=== PATIENT | male | born 1955 | race Caucasian/White ===

== ENCOUNTER 2017-01-23 05:42 | Day surgery (SDC) | payer BC ==
[2017-01-23] MEDS ORDERED: Midazolam 1 MG/ML 2 ML SDV IV ONE ×7 (05:43→07:07)
[2017-01-23] MEDS ORDERED: fentaNYL 100 MCG/2 ML SDV IV ONE ×4 (05:43→07:10)
[2017-01-23] MEDS ORDERED: Dextrose 5%-0.45% NaCl 1,000 ML IV SCH (06:00)
[2017-01-23] MEDS ORDERED: Midazolam 1 MG/ML 2 ML SDV ONE (06:18)
[2017-01-23] MEDS ORDERED: fentaNYL 100 MCG/2 ML SDV ONE (06:18)
--- NOTE | 2017-01-23 08:21 | OR ---
DATE: 01/23/2017 PROCEDURE: Total colonoscopy. INSTRUMENT USED: CF-H180AL Olympus video colonoscope. PREMEDICATIONS: Fentanyl 125 mcg intravenous, Versed 4 mg intravenous. Nasal O2 cannula. The procedure was done under pulse oximetry, BP recording, and dietary aide. INDICATION: The patient with Hemoccult positive stools. Colonoscopic examination is done for detection of any polypoid lesions and removal, endoscopic hemostasis therapy if needed. DESCRIPTION OF PROCEDURE: Initial rectal exam was unremarkable. Rigid anoscopy was normal. The colonoscope was passed with ease. Few scattered diverticula were noted. The scope was passed with ease up to the ileocecal area, photographs were taken of the normal appearing cecum identified by landmarks of appendiceal orifice and double-bulged ileocecal folds. No bleeding was noted from any of the visualized areas at the commencement of the examination. No stricture. No vascular ectasia. No large isolated ulcerations seen. No evidence of diffuse inflammatory bowel disease in the form of friability, contact bleeding, or ulcerations. No polyp or tumor mass identified. Probing the proximal sides of folds and flexures, using adequate distention and clearing of the stool material, withdrawal of the scope was made. Cecum to rectum time over 6 minutes. No bleeding was noted from any of the visualized areas at the completion of examination. IMPRESSION: Diverticulosis. The patient tolerated the procedure well. [facility] /[id number]
[2017-01-23 09:37] VITALS: BP 167/75
== END 2017-01-23 09:45 | disposition home or self-care (01) ==
LOC: DL.ENDO 05:42
PROVIDERS: ATTEND Internal Medicine Gastroenterology
DX: K57.30 Diverticulosis of large intestine without perforation or abscess without bleeding (principal); E11.9 Type 2 diabetes mellitus without complications; M19.90 Unspecified osteoarthritis, unspecified site; E78.5 Hyperlipidemia, unspecified; Z80.0 Family history of malignant neoplasm of digestive organs; Z79.82 Long term (current) use of aspirin; Z79.899 Other long term (current) drug therapy; Z98.890 Other specified postprocedural states
CPT/HCPCS: 45378; J2250; J3010; J7042

== ENCOUNTER 2017-06-13 16:41 | Inpatient (IN) | payer BC ==
[2017-06-13] MEDS ORDERED: Zolpidem 5 MG Tab PO PRN (17:33)
[2017-06-13] MEDS ORDERED: Acetaminophen 325 MG Tab PO PRN (17:33)
[2017-06-13] MEDS ORDERED: Sodium Chloride 0.9% 10 ML Syringe FLUSH PRN (17:33)
[2017-06-13] MEDS ORDERED: Ondansetron 4 MG/2 ML SDV IVPUSH PRN (17:33)
--- NOTE | 2017-06-13 17:33 | PCM.HP ---
H&P History of Present Illness - General Date of Service: 06/13/17 Admit Problem/Dx: Hyperglycemia Source of Information: Patient - History of Present Illness Initial Comments - Free Text/Narative: The patient is a 62-year-old gentleman with a history of diet-controlled diabetes, dyslipidemia. The patient was noted to have peritonsillar infection and was given prednisone about a month ago. He only took it for a few days. Subsequently noticed that he is urinating a lot, losing weight, always thirsty. On the day of admission the patient was noted to have blood sugar above 600. - Related Data Allergies/Adverse Reactions: Allergies Allergy/AdvReac Type Severity Reaction Status Date / Time No Known Allergies Allergy Verified 06/13/17 16:56 Home Medications: Home Meds Multivitamin with Minerals [Multiple Vitamin] 1 tab PO DAILY 02/23/15 [History] atorvaSTATin [Lipitor] 1 tab PO DAILY 01/20/17 [History] Non-Formulary Medication [NF Drug] 0 each PRN 06/13/17 [History] Past Medical History HEENT History: Reports: Hard of Hearing Other HEENT History: WEARS CORRECTIVE LENSES Cardiovascular History: Reports: High Cholesterol Respiratory History: Reports: None Gastrointestinal History: Reports: Chronic Constipation, GERD Genitourinary History: Reports: None Musculoskeletal History: Reports: Arthritis, Osteoarthritis Neurological History: Reports: None Psychiatric History: Reports: None Endocrine/Metabolic History: Reports: None, Diabetes, Type II Hematologic History: Reports: None Immunologic History: Reports: None Oncologic (Cancer) History: Reports: None Dermatologic History: Reports: None - Infectious Disease History Infectious Disease History: Reports: None - Past Surgical History Head Surgeries/Procedures: Reports: None HEENT Surgical History: Reports: None Cardiovascular Surgical History: Reports: None Respiratory Surgical History: Reports: None GI Surgical History: Reports: Colonoscopy Male Surgical History: Reports: None Endocrine Surgical History: Reports: None Neurological Surgical History: Reports: None Musculoskeletal Surgical History: Reports: Other (See Below) Other Musculoskeletal Surgeries/Procedures:: LEFT GREAT DIGIT FOOT SURGERY Oncologic Surgical History: Reports: None Dermatological Surgical History: Reports: None Social & Family History - Family History Family Medical History: Noncontributory - Tobacco Use Smoking Status *Q: Light Tobacco Smoker Packs/Tins Daily: 0.3 Used Tobacco, but Quit: No Second Hand Smoke Exposure: No - Caffeine Use Caffeine Use: Reports: None - Alcohol Use Days Per Week of Alcohol Use: 2 - Recreational Drug Use Recreational Drug Use: No Drug Use in Last 12 Months: No H&P Review of Systems - Review of Systems: Review Of Systems: See Below General: Denies: Fever Pulmonary: Denies: Shortness of Breath Cardiovascular: Denies: Chest Pain Gastrointestinal: Denies: Abdominal Pain Psychiatric: Denies: Confusion Exam - Exam Exam: See Below - Vital Signs Vital Signs: Last Vital Signs Temp 36.0 C 06/13/17 16:56 Pulse 77 06/13/17 16:56 Resp 18 06/13/17 16:56 BP 117/72 06/13/17 16:56 Pulse Ox 100 06/13/17 16:56 Weight: 60.328 kg - Exam General: Alert, Oriented Neck: Supple Lungs: Clear to Auscultation, Normal Respiratory Effort Cardiovascular: Regular Rate, Regular Rhythm GI/Abdominal Exam: Normal Bowel Sounds, Soft, Non-Tender Extremities: No Pedal Edema Skin: Warm, Dry Psychiatric: Alert, Normal Affect, Normal Mood - Patient Data Lab Results Last 24 hrs: Laboratory Results - last 24 hr 06/13/17 Range/Units 17:06 POC Glucose 429 H* (70-105) mg/dl Laboratory studies from [facility] were reviewed on May UN was 14 sodium 141 potassium 4.5 serum glucose 609 bicarbonate 26 creatinine 1.1 WBC count 4.7 hemoglobin 13.0 platelets 234 *Q Meaningful Use (ADM) - VTE *Q VTE Criteria *Q: - Stroke *Q Stroke Criteria *Q: - AMI *Q AMI Criteria *Q: - Problem List (1) Hyperglycemia SNOMED Code(s): 19404712 ICD Code: R73.9 - HYPERGLYCEMIA, UNSPECIFIED Status: Acute Current Visit : Yes (2) Diabetes SNOMED Code(s): 38160824 ICD Code: E11.9 - TYPE 2 DIABETES MELLITUS WITHOUT COMPLICATIONS Status: Acute Current Visit: Yes Problem List Initiated/Reviewed/Updated: Yes Orders Last 24hrs: Active Orders 24 hr Category Date Time Status Glucose [Blood Glucose Check, Bedside] [RC] Q1HR Care 06/13/17 17:29 Active BASIC METABOLIC PANEL,BMP [CHEM] AM Lab 06/14/17 05:15 Ordered Aspirin Med 06/13/17 21:00 Ordered 325 mg PO BEDTIME Multivitamins,Therapeutic [Thera] Med 06/13/17 21:00 Ordered 1 each PO BEDTIME Regular Insulin,Human 100 Units in Normal Saline @ 0.1 Med 06/13/17 17:30 Ordered UNITS/KG/HR Insulin Regular, Human [HumuLIN R] 100 unit Sodium Chloride 0.9% [Normal Saline] 99 ml IV TITRATE Sodium Chloride 0.9% @ 100 MLS/HR(1,000ml) Med 06/13/17 17:45 Ordered Sodium Chloride 0.9% [Normal Saline] 1,000 ml IV ASDIRECTED atorvaSTATin [Lipitor] Med 06/13/17 21:00 Ordered 40 mg PO BEDTIME Medication Orders Aspirin (Aspirin) 325 mg PO BEDTIME KIRSTIE Atorvastatin Calcium (Lipitor) 40 mg PO BEDTIME KIRSTIE Insulin Human Regular 100 unit (/ Sodium Chloride) 100 mls @ 6.03 mls/hr IV TITRATE KIRSTIE; 0.1 UNITS/KG/HR PRN Reason: Protocol Sodium Chloride (Normal Saline) 1,000 mls @ 100 mls/hr IV ASDIRECTED KIRSTIE Multivitamins (Thera) 1 each PO BEDTIME KIRSTIE Assessment/Plan Comment:: The patient is a 62-year-old gentleman who was noted to have severe hyperglycemia #1 diabetes The patient has been on diet control Severe hyperglycemia noted Suspect that he will be insulin-dependent diabetic since he is underweight but he would like to try oral medications if possible. We'll improve blood sugars with insulin drip, IV fluids. We'll try oral antidiabetic medications. We'll need dietitian and perinatal educator follow-up. #2 dyslipidemia Treat with Lipitor #3 DVT prophylaxis with subcutaneous heparin
[2017-06-13] MEDS: Sodium Chloride 0.9% 1,000 ML IV SCH (18:24)
[2017-06-13] MEDS ORDERED: Insulin Regular, Human 100 Units/ML 3 ML Vial IVPUSH ONE (18:37)
[2017-06-13] MEDS ORDERED: Insulin Regular, Human 100 Units/ML 3 ML Vial IV ONE (19:36)
[2017-06-13] MEDS ORDERED: Multivitamins,Therapeutic Tab PO SCH (21:00)
[2017-06-13] MEDS ORDERED: atorvaSTATin 20 MG Tab PO SCH (21:00)
[2017-06-13] MEDS ORDERED: Aspirin 325 MG Tab PO SCH (21:00)
[2017-06-13] MEDS: Heparin Sodium 5,000 Units/ML Vial SUBCUT SCH (21:26)
[2017-06-13] MEDS: Amoxicillin/Clavulanate K 875-125 MG Tab PO SCH (21:27)
[2017-06-14] MEDS ORDERED: Insulin Detemir 100 Units/ML 3 ML Pen SUBCUT ONE (00:35)
[2017-06-14] MEDS: Sodium Chloride 0.9% 1,000 ML IV SCH (04:43)
[2017-06-14] MEDS: Heparin Sodium 5,000 Units/ML Vial SUBCUT SCH ×2 (05:25→14:32)
[2017-06-14 07:08] LABS: CHLORIDE,CL 99 mmol/L (101-111); SODIUM,NA 133 mmol/L (135-145)
[2017-06-14] MEDS: Amoxicillin/Clavulanate K 875-125 MG Tab PO SCH (08:27)
[2017-06-14] MEDS ORDERED: atorvaSTATin 20 MG Tab PO SCH (09:00)
[2017-06-14] MEDS ORDERED: Potassium Chloride 10 MEQ Tab.ER PO ONE (10:47)
[2017-06-14 11:13] VITALS: BP 109/64
--- NOTE | 2017-06-14 12:47 | PCM.DCSUM1 ---
Discharge Summary - Hospital Course Free Text/Narrative:: The patient is a 62-year-old gentleman who presented with hyperglycemia. The patient's blood sugars were in the 500s. The patient was started on an insulin drip. IV fluids and electrolyte replacement was given. With that the patient's blood sugar has improved. We discussed the diagnosis of diabetes, treatment options. Started the patient on once a day Levemir. Discussed hyperglycemia and hypoglycemia. Discussed hypoglycemia symptoms and treatment. The patient will need close follow-up for diabetic education and further adjustments of diabetic treatment. - Discharge Data Discharge Date: 06/14/17 Discharge Disposition: Home, Self-Care 01 Condition: Good - Discharge Diagnosis/Problem(s) (1) Hyperglycemia SNOMED Code(s): 43506051 ICD Code: R73.9 - HYPERGLYCEMIA, UNSPECIFIED Status: Acute Current Visit : Yes (2) Diabetes SNOMED Code(s): 73050703 ICD Code: E11.9 - TYPE 2 DIABETES MELLITUS WITHOUT COMPLICATIONS Status: Acute Current Visit: Yes - Patient Instructions Diet: Usual Diet as Tolerated Activity: As Tolerated - Discharge Plan Prescriptions/Med Rec: Insulin Detemir [Levemir] 10 unit SUBCUT DAILY #1 pen Home Medications: Home Meds Multivitamin with Minerals [Multiple Vitamin] 1 tab PO DAILY 02/23/15 [History] atorvaSTATin [Lipitor] 1 tab PO DAILY 01/20/17 [History] Non-Formulary Medication [NF Drug] 0 each PRN 06/13/17 [History] Amoxicillin/Clavulanate K [Augmentin 875-125 MG] 1 tab PO Q12HR tablet [Rx] Aspirin 325 mg PO BEDTIME tablet 06/14/17 [Rx] Insulin Detemir [Levemir] 10 unit SUBCUT DAILY #1 pen 06/14/17 [Rx] atorvaSTATin [Lipitor] 40 mg PO DAILY tablet 06/14/17 [Rx] Patient Handouts: Insulin Storage and Care, Insulin Treatment for Diabetes, Tips for Eating Away From Home If You Have Diabetes, Diabetes and Sick Day Management, Hyperglycemia, Bynx-[id number], How to Avoid Diabetes Problems, Type 2 Diabetes Mellitus, Adult, Cees-ny-Dgel, Blood Glucose Monitoring, Adult, Diabetes Mellitus and Food Referrals: Wendy Talbert PA [Primary Care Provider] - (in 2-3 days re: new DM) - General Info Date of Service: 06/14/17 Admission Dx/Problem (Free Text: Hyperglycemia - Review of Systems General: Denies: Fever Pulmonary: Denies: Shortness of Breath Cardiovascular: Denies: Chest Pain Gastrointestinal: Denies: Abdominal Pain Genitourinary: Denies: Dysuria - Patient Data Vitals - Most Recent: Last Vital Signs Temp 36.3 C 06/14/17 11:13 Pulse 74 06/14/17 11:13 Resp 20 06/14/17 11:13 BP 109/64 06/14/17 11:13 Pulse Ox 98 06/14/17 11:13 Weight - Most Recent: 60.328 kg I&O - Last 24 hours: Intake & Output 06/13/17 06/14/17 06/14/17 22:59 06:59 14:59 Intake Total 1030 2476 400 Output Total 1140 410 Balance -110 2476 -10 Lab Results - Last 24 hrs: Laboratory Results - last 24 hr 06/13/17 06/13/17 06/13/17 Range/Units 17:06 18:28 19:30 Sodium (135-145) mmol/L Potassium (3.6-5.0) mmol/L Chloride (101-111) mmol/L Carbon Dioxide (21.0-31.0) mmol/L Anion Gap BUN (7-18) mg/dL Creatinine (0.6-1.3) mg/dL Est Cr Clr Drug Dosing mL/min Estimated GFR (MDRD) Glucose (74-105) mg/dL POC Glucose 429 H* 413 H* > 500 H* (70-105) mg/dl Calcium (8.4-10.2) mg/dl Phosphorus (2.5-4.6) mg/dL Magnesium (1.8-2.5) mg/dL 06/13/17 06/13/17 06/13/17 Range/Units 20:30 21:32 22:37 Sodium (135-145) mmol/L Potassium (3.6-5.0) mmol/L Chloride (101-111) mmol/L Carbon Dioxide (21.0-31.0) mmol/L Anion Gap BUN (7-18) mg/dL Creatinine (0.6-1.3) mg/dL Est Cr Clr Drug Dosing mL/min Estimated GFR (MDRD) Glucose (74-105) mg/dL POC Glucose 479 H* 310 H 175 H (70-105) mg/dl Calcium (8.4-10.2) mg/dl Phosphorus (2.5-4.6) mg/dL Magnesium (1.8-2.5) mg/dL 06/13/17 06/14/17 06/14/17 Range/Units 23:37 00:30 02:58 Sodium (135-145) mmol/L Potassium (3.6-5.0) mmol/L Chloride (101-111) mmol/L Carbon Dioxide (21.0-31.0) mmol/L Anion Gap BUN (7-18) mg/dL Creatinine (0.6-1.3) mg/dL Est Cr Clr Drug Dosing mL/min Estimated GFR (MDRD) Glucose (74-105) mg/dL POC Glucose 78 186 H 305 H (70-105) mg/dl Calcium (8.4-10.2) mg/dl Phosphorus (2.5-4.6) mg/dL Magnesium (1.8-2.5) mg/dL 06/14/17 06/14/17 06/14/17 Range/Units 06:33 07:47 11:21 Sodium 133 L (135-145) mmol/L Potassium 3.5 L (3.6-5.0) mmol/L Chloride 99 L (101-111) mmol/L Carbon Dioxide 25.0 (21.0-31.0) mmol/L Anion Gap 12.5 BUN 14 (7-18) mg/dL Creatinine 0.7 (0.6-1.3) mg/dL Est Cr Clr Drug Dosing 95.76 mL/min Estimated GFR (MDRD) > 60 Glucose 266 H (74-105) mg/dL POC Glucose 210 H 282 H (70-105) mg/dl Calcium 8.6 (8.4-10.2) mg/dl Phosphorus 4.4 (2.5-4.6) mg/dL Magnesium 1.7 L (1.8-2.5) mg/dL Med Orders - Current: Current Medications Acetaminophen (Tylenol) 650 mg PO Q4H PRN PRN Reason: Pain (Mild 1-3)/fever Amoxicillin/Clavulanate Potassium (Augmentin 875 Mg/125 Mg) 1 tab PO Q12HR [facility] Last Admin: 06/14/17 08:27 Dose: 1 tab Aspirin (Aspirin) 325 mg PO BEDTIME KIRSTIE Last Admin: 06/13/17 21:28 Dose: 325 mg Atorvastatin Calcium (Lipitor) 40 mg PO DAILY [facility] Last Admin: 06/14/17 08:27 Dose: 40 mg Heparin Sodium (Porcine) (Heparin Sodium) 5,000 units SUBCUT Q8HR [facility] Last Admin: 06/14/17 05:25 Dose: 5,000 units Sodium Chloride (Normal Saline) 1,000 mls @ 100 mls/hr IV ASDIRECTED [facility] Last Admin: 06/14/17 04:43 Dose: 100 mls/hr Magnesium Oxide (Magnesium Oxide) 250 mg PO ONETIME ONE Stop: 06/15/17 10:48 Multivitamins (Thera) 1 each PO BEDTIME [facility] Last Admin: 06/13/17 21:28 Dose: 1 each Ondansetron HCl (Zofran) 4 mg IVPUSH Q6H PRN PRN Reason: Nausea/Vomiting Sodium Chloride (Saline Flush) 10 ml FLUSH ASDIRECTED PRN PRN Reason: Keep Vein Open Zolpidem Tartrate (Ambien) 5 mg PO BEDTIME PRN PRN Reason: Sleep Last Admin: 06/13/17 21:40 Dose: 5 mg Discontinued Medications Atorvastatin Calcium (Lipitor) 40 mg PO BEDTIME [facility] Insulin Human Regular 100 unit (/ Sodium Chloride) 100 mls @ 6.03 mls/hr IV TITRATE KIRSTIE; 0.1 UNITS/KG/HR PRN Reason: Protocol Insulin Human Regular 100 unit (/ Sodium Chloride) 100 mls @ 2 mls/hr IV TITRATE KIRSTIE; 2 UNITS/HR PRN Reason: Protocol Stop: 06/14/17 00:35 Last Infusion: 06/13/17 23:39 Dose: 0 units/hr, 0 mls/hr Insulin Detemir (Levemir) 10 unit SUBCUT ONETIME ONE Stop: 06/14/17 00:36 Last Admin: 06/14/17 00:50 Dose: 10 units Insulin Human Regular (Humulin R) 2 unit IVPUSH ONETIME ONE PRN Reason: Protocol Stop: 06/13/17 18:38 Last Admin: 06/13/17 19:35 Dose: 2 units Potassium Chloride (Klor-Con 10) 40 meq PO ONETIME ONE Stop: 06/14/17 10:48 Last Admin: 06/14/17 11:09 Dose: 40 meq - Exam General: Reports: Alert, Oriented Neck: Reports: Supple Lungs: Reports: Clear to Auscultation, Normal Respiratory Effort Cardiovascular: Reports: Regular Rate, Regular Rhythm GI/Abdominal Exam: Normal Bowel Sounds, Soft, Non-Tender Extremities: No Pedal Edema Skin: Reports: Warm, Dry *Q Meaningful Use (DIS) - VTE *Q VTE Criteria *Q: - Stroke *Q Stroke Criteria *Q: - AMI *Q AMI Criteria *Q:
== END 2017-06-14 15:20 | disposition home or self-care (01) | DRG 420 ==
LOC: UNDOADMOB 16:41 → DL.MS 16:41 → INTOOBSV 17:33 → DL.MS 17:33 → OBSVTOIN 17:33
PROVIDERS: ADMIT Internal Medicine; ATTEND Internal Medicine
DX: E11.65 Type 2 diabetes mellitus with hyperglycemia (principal); E78.5 Hyperlipidemia, unspecified; F17.210 Nicotine dependence, cigarettes, uncomplicated; M19.90 Unspecified osteoarthritis, unspecified site; Z79.899 Other long term (current) drug therapy
CPT/HCPCS: 36415; 80048; 82962; 83735; 84100; A9270-GY; J1644; J1815; J1815-GY; J7030; J7050

== ENCOUNTER 2017-07-01 20:31 | Emergency (ER) | payer BC, SELFPAY ==
[2017-07-01] MEDS ORDERED: Ondansetron 4 MG Tab.DIS PO ONE (20:32)
[2017-07-01 20:43] VITALS: BP 113/75
[2017-07-01] MEDS ORDERED: Sodium Chloride 0.9% 1,000 ML IV ONE (20:47)
[2017-07-01] MEDS ORDERED: Ondansetron 4 MG/2 ML SDV IV ONE (21:05)
--- NOTE | 2017-07-01 21:12 | EDM.PDOC ---
ED HPI GENERAL MEDICAL PROBLEM - General Chief Complaint: Chest Pain Stated Complaint: PALMER DIMAS, [id number] Time Seen by Provider: 07/01/17 21:00 Source of Information: Reports: Patient History Limitations: Reports: No Limitations - History of Present Illness INITIAL COMMENTS - FREE TEXT/NARRATIVE: This 62 yo male patient reports to the ED with generalized body aches. The patient reports he was feeling normal this morning when he blew snow. Throughout the day, the patient began to have additional symptoms (diarrhea, nausea/vomiting, abdominal cramping, shortness of breath, chest pain). The patient reports his chest pain started at about 1400 and describes his pain as a mild pressure making it hard to catch his breath. The patient reports he was recently diagnosed with diabetes. The patient reports he took insulin, but did not check his blood sugar at home (does have glucometer). The patient reports he has been exposed to someone with the flu and he did get a flu shot this year. The patient also reports that he took Tylenol which seems to have improved his symptoms. 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 Lower Abdomen Pain Score (Numeric/FACES): 5 Mid-Sternal Chest Pain Score (Numeric/FACES): 5 - Related Data Allergies Allergy/AdvReac Type Severity Reaction Status Date / Time No Known Allergies Allergy Verified 06/13/17 16:56 Home Meds: Home Meds Multivitamin with Minerals [Multiple Vitamin] 1 tab PO DAILY 02/23/15 [History] atorvaSTATin [Lipitor] 1 tab PO DAILY 01/20/17 [History] Non-Formulary Medication [NF Drug] 0 each PRN 06/13/17 [History] Amoxicillin/Clavulanate K [Augmentin 875-125 MG] 1 tab PO Q12HR tablet [Rx] Aspirin 325 mg PO BEDTIME tablet 06/14/17 [Rx] Insulin Detemir [Levemir] 10 unit SUBCUT DAILY #1 pen 06/14/17 [Rx] atorvaSTATin [Lipitor] 40 mg PO DAILY tablet 06/14/17 [Rx] Past Medical History HEENT History: Reports: Hard of Hearing Other HEENT History: WEARS CORRECTIVE LENSES Cardiovascular History: Reports: High Cholesterol Respiratory History: Reports: None Other Respiratory History: smoker for 24 hours a years Gastrointestinal History: Reports: Chronic Constipation, GERD Genitourinary History: Reports: None Musculoskeletal History: Reports: Arthritis, Osteoarthritis Neurological History: Reports: None Psychiatric History: Reports: None Endocrine/Metabolic History: Reports: Diabetes, Type II Hematologic History: Reports: None Immunologic History: Reports: None Oncologic (Cancer) History: Reports: None Dermatologic History: Reports: None - Infectious Disease History Infectious Disease History: Reports: None - Past Surgical History Head Surgeries/Procedures: Reports: None HEENT Surgical History: Reports: None Cardiovascular Surgical History: Reports: None Respiratory Surgical History: Reports: None GI Surgical History: Reports: Colonoscopy Male Surgical History: Reports: None Endocrine Surgical History: Reports: None Neurological Surgical History: Reports: None Musculoskeletal Surgical History: Reports: Other (See Below) Other Musculoskeletal Surgeries/Procedures:: LEFT GREAT DIGIT FOOT SURGERY Oncologic Surgical History: Reports: None Dermatological Surgical History: Reports: None Social & Family History - Family History Family Medical History: Noncontributory - Tobacco Use Smoking Status *Q: Former Smoker Years of Tobacco use: 24 Packs/Tins Daily: 0.3 Used Tobacco, but Quit: Yes Month Tobacco Last Used: apr 2017 Second Hand Smoke Exposure: No - Caffeine Use Caffeine Use: Reports: None - Alcohol Use Days Per Week of Alcohol Use: 2 Number of Drinks Per Day: 0 Total Drinks Per Week: 0 - Recreational Drug Use Recreational Drug Use: No Drug Use in Last 12 Months: No ED ROS GENERAL - Review of Systems Review Of Systems: ROS reveals no pertinent complaints other than HPI. ED EXAM, GENERAL - Physical Exam Exam: See Below Exam Limited By: No Limitations General Appearance: Alert, WD/WN, Moderate Distress Eye Exam: Bilateral Eye: EOMI, Normal Inspection, PERRL Ears: Normal External Exam, Normal Canal, Hearing Grossly Normal, Normal TMs Nose: Normal Inspection, Normal Mucosa, No Blood Throat/Mouth: Normal Inspection, Normal Lips, Normal Teeth, Normal Gums, Normal Oropharynx, Normal Voice, No Airway Compromise Head: Atraumatic, Normocephalic Neck: Normal Inspection, Supple, Non-Tender, Full Range of Motion Respiratory/Chest: No Respiratory Distress, Lungs Clear, Normal Breath Sounds, No Accessory Muscle Use, Chest Non-Tender Cardiovascular: Normal Peripheral Pulses, No Edema, No Gallop, No JVD, No Murmur , No Rub, Tachycardia GI/Abdominal: Normal Bowel Sounds, Soft, Non-Tender, No Organomegaly, No Distention, No Abnormal Bruit, No Mass, Pelvis Stable (Male) Exam: Deferred Rectal (Males) Exam: Deferred Back Exam: Normal Inspection, Full Range of Motion, NT Extremities: Normal Inspection, Normal Range of Motion, Non-Tender, Normal Capillary Refill, No Pedal Edema Neurological: Alert, Oriented, CN II-XII Intact, Normal Cognition, Normal Gait, Normal Reflexes, No Motor/Sensory Deficits Psychiatric: Anxious Skin Exam: Warm, Dry, Intact, Normal Color, No Rash Lymphatic: No Adenopathy Course - Vital Signs Last Recorded V/S: Last Vital Signs Temp 36.6 C 07/01/17 20:38 Pulse 120 H 07/01/17 20:38 Resp 18 07/01/17 20:38 BP 113/75 07/01/17 20:38 Pulse Ox 100 07/01/17 20:38 - Orders/Labs/Meds Orders: Active Orders 24 hr Category Date Time Status EKG Documentation Completion [RC] URGENT Care 07/01/17 20:46 Active Glucose [Blood Glucose Check, Bedside] [RC] ONETIME Care 07/01/17 20:35 Active Labs: Laboratory Tests 07/01/17 07/01/17 07/01/17 Range/Units 20:42 20:42 20:42 WBC 6.1 (5.0-10.0) 10^3/uL RBC 4.78 (4.6-6.2) 10^6/uL Hgb 14.2 (14.0-18.0) g/dL Hct 42.0 (40.0-54.0) % MCV 87.9 (80-100) fL MCH 29.7 (27.0-34.0) pg MCHC 33.8 (33.0-35.0) g/dL Plt Count 233 (150-450) 10^3/uL Neut % (Auto) 78.5 H (42.2-75.2) % Lymph % (Auto) 10.5 L (20.5-50.1) % [place] % (Auto) 9.9 H (2-8) % Eos % (Auto) 0.8 L (1.0-3.0) % Baso % (Auto) 0.3 (0.0-1.0) % Sodium 131 L (135-145) mmol/L Potassium 3.3 L (3.6-5.0) mmol/L Chloride 98 L (101-111) mmol/L Carbon Dioxide 20.0 L (21.0-31.0) mmol/L Anion Gap 16.3 BUN 19 H (7-18) mg/dL Creatinine 0.7 (0.6-1.3) mg/dL Est Cr Clr Drug Dosing 100.80 mL/min Estimated GFR (MDRD) > 60 BUN/Creatinine Ratio 27.14 Glucose 184 H (74-105) mg/dL Calcium 9.4 (8.4-10.2) mg/dl Total Bilirubin 1.4 H (0.2-1.0) mg/dL AST 28 (10-42) IU/L ALT 27 (10-60) IU/L Alkaline Phosphatase 59 (42-121) IU/L Troponin I (0.00-0.02) ng/ml Total Protein 7.3 (6.7-8.2) g/dl Albumin 4.4 (3.2-5.5) g/dl Globulin 2.9 Albumin/Globulin Ratio 1.52 Urine Color (YELLOW) Urine Appearance (CLEAR) Urine pH (5.0-9.0) Ur Specific [place] (1.005-1.030) Urine Protein (NEGATIVE) Urine Glucose (UA) (NEGATIVE) Urine Ketones (NEGATIVE) Urine Occult Blood (NEGATIVE) Urine Nitrite (NEGATIVE) Urine Bilirubin (NEGATIVE) Urine Urobilinogen (0.2-1.0) mg/dL Ur Leukocyte Esterase (NEGATIVE) Urine RBC /HPF Urine WBC (0-5/HPF) /HPF Ur Epithelial Cells /HPF Amorphous Sediment (0/HPF) /HPF Urine Bacteria (0-FEW/HPF) /HPF Urine Mucus /LPF Ketones Positive(small) 07/01/17 07/01/17 Range/Units 20:42 21:33 WBC (5.0-10.0) 10^3/uL RBC (4.6-6.2) 10^6/uL Hgb (14.0-18.0) g/dL Hct (40.0-54.0) % MCV (80-100) fL MCH (27.0-34.0) pg MCHC (33.0-35.0) g/dL Plt Count (150-450) 10^3/uL Neut % (Auto) (42.2-75.2) % Lymph % (Auto) (20.5-50.1) % [place] % (Auto) (2-8) % Eos % (Auto) (1.0-3.0) % Baso % (Auto) (0.0-1.0) % Sodium (135-145) mmol/L Potassium (3.6-5.0) mmol/L Chloride (101-111) mmol/L Carbon Dioxide (21.0-31.0) mmol/L Anion Gap BUN (7-18) mg/dL Creatinine (0.6-1.3) mg/dL Est Cr Clr Drug Dosing mL/min Estimated GFR (MDRD) BUN/Creatinine Ratio Glucose (74-105) mg/dL Calcium (8.4-10.2) mg/dl Total Bilirubin (0.2-1.0) mg/dL AST (10-42) IU/L ALT (10-60) IU/L Alkaline Phosphatase (42-121) IU/L Troponin I < 0.02 (0.00-0.02) ng/ml Total Protein (6.7-8.2) g/dl Albumin (3.2-5.5) g/dl Globulin Albumin/Globulin Ratio Urine Color Yellow (YELLOW) Urine Appearance Cloudy (CLEAR) Urine pH 8.5 (5.0-9.0) Ur Specific [place] 1.015 (1.005-1.030) Urine Protein Trace H (NEGATIVE) Urine Glucose (UA) 250 H (NEGATIVE) Urine Ketones >=160 H (NEGATIVE) Urine Occult Blood Negative (NEGATIVE) Urine Nitrite Negative (NEGATIVE) Urine Bilirubin Small H (NEGATIVE) Urine Urobilinogen 1.0 (0.2-1.0) mg/dL Ur Leukocyte Esterase Negative (NEGATIVE) Urine RBC 0-5 /HPF Urine WBC 0-5 (0-5/HPF) /HPF Ur Epithelial Cells Occasional /HPF Amorphous Sediment Many (0/HPF) /HPF Urine Bacteria Few (0-FEW/HPF) /HPF Urine Mucus Moderate H /LPF Ketones Meds: Medications Discontinued Medications Generic Name Dose Route Start Last Admin Trade Name Freq PRN Reason Stop Dose Admin Sodium Chloride 1,000 mls @ 999 mls/hr 07/01/17 20:47 07/01/17 21:11 Normal Saline IV 07/01/17 21:47 999 mls/hr .BOLUS ONE Administration Ondansetron HCl 4 mg 07/01/17 21:05 07/01/17 21:11 Zofran IV 07/01/17 21:06 4 mg ONETIME ONE Administration Departure - Departure Time of Disposition: 22:20 Disposition: Home, Self-Care 01 Condition: Fair Clinical Impression: Gastroenteritis - Discharge Information Instructions: Viral Gastroenteritis, Adult, [id number], Food Choices to Help Relieve Diarrhea, Adult Forms: ED Department Discharge Care Plan Goals: The patient was advised of the examination and lab results during the visit. The patient was given IV fluids and IV Zofran while in the ED. The patient was encouraged to stick to a BRAT diet (bananas, rice, applesauce and toast) for the next 48 hours with small frequent sips of fluid. The patient was discharged with Zofran ODT (4 mg) #4 to take 1 by mouth every 6 hours as needed for nausea. The patient was also given a script for Zofran (4 mg) #10 to take 1 by mouth every 6 hours as needed for nausea. If the patient has any additional symptoms or concerns, the patient should follow-up with his primary care facility or return to the emergency department. - My Orders Last 24 Hours: My Active Orders 07/01/17 20:35 Glucose [Blood Glucose Check, Bedside] [RC] ONETIME 07/01/17 20:46 EKG Documentation Completion [RC] URGENT - Assessment/Plan Last 24 Hours: My Active Orders 07/01/17 20:35 Glucose [Blood Glucose Check, Bedside] [RC] ONETIME 07/01/17 20:46 EKG Documentation Completion [RC] URGENT
[2017-07-01 21:28] LABS: ANION GAP 16.3; CHLORIDE,CL 98 mmol/L (101-111); SODIUM,NA 131 mmol/L (135-145)
[2017-07-01] MEDS ORDERED: Ondansetron 4 MG Tab.DIS ONE (22:25)
--- NOTE | 2017-07-05 13:40 | EKG ---
07/01/2017- ELIZABETH NANCE - 12-lead EKG shows normal sinus rhythm with sinus tachycardia. No significant ST elevation or ST depression noted on this 12-lead EKG. [facility] /[id number]
== END 2017-07-01 22:30 | disposition home or self-care (01) ==
LOC: DL.ED 20:31
DX: K52.9 Noninfective gastroenteritis and colitis, unspecified (principal); R07.2 Precordial pain; K21.9 Gastro-esophageal reflux disease without esophagitis; E78.00 Pure hypercholesterolemia, unspecified; E11.9 Type 2 diabetes mellitus without complications; Z87.891 Personal history of nicotine dependence; Z79.4 Long term (current) use of insulin; Z79.82 Long term (current) use of aspirin; Z79.899 Other long term (current) drug therapy
CPT/HCPCS: 36415; 80053; 81001; 82009; 82962; 84484; 85025; 87804; 93005; 96361; 96374; 99285; J2405; J7030; A9270-GY

== ENCOUNTER 2018-09-03 10:00 | Day surgery (SDC) | payer OTHER, BC ==
[~2018-09-03 10:00] MED LIST: Dextrose 5%-0.45% NaCl 1,000 ML IV SCH
[2018-09-03] MEDS ORDERED: Midazolam 1 MG/ML 2 ML SDV IV ONE ×5 (10:01→11:20)
[2018-09-03] MEDS ORDERED: Benzocaine 20% Topical Spray UD MUCMEM ONE ×2 (10:34→11:17)
[2018-09-03] MEDS ORDERED: Midazolam 1 MG/ML 2 ML SDV ONE (10:34)
[2018-09-03 14:59] VITALS: BP 134/78; PULSE 64
--- NOTE | 2018-09-04 09:13 | OR ---
DATE: 09/03/2018 PREOPERATIVE DIAGNOSIS: Gastroesophageal reflux disease. POSTOPERATIVE DIAGNOSIS: Gastroesophageal reflux disease. PROCEDURE: EGD. ANESTHESIA: Conscious sedation with IV Versed. SPECIMEN: None. OPERATIVE FINDINGS: [id number] sized hiatal hernia. No evidence of distal esophagitis, reflux or ulcers. RECOMMENDATION: This patient is fairly well controlled on his proton pump inhibitor as it is now. He does have regurgitation symptoms, which will not improve on his medication. If his regurgitation gets more bothersome for him or his heartburn increases, he would be an adequate patient for laparoscopic Nathen fundoplication to correct his reflux. PROCEDURE IN DETAIL: After adequate preparation, a gastroscope was inserted into the esophagus. This was passed down to the distal esophagus. He shows no evidence of esophagitis, strictures, masses, or bleeding sites. He does have a 3 to 5 cm hiatal hernia. A photograph of this was taken, and the scope was advanced into the stomach. Both forward and retroflexed views were done and are normal except it confirms the hiatal hernia. The scope was advanced through the pylorus, and the duodenum also appears to be normal. Air was suctioned from the stomach, and the scope removed. [facility] /[id number] cc: [facility]
[2018-09-04] MEDS ORDERED: Benzocaine 20% Oral Spray 59.2 ML Canister MUCMEM ONE (11:17)
== END 2018-09-03 13:14 | disposition home or self-care (01) ==
LOC: DL.GSCL 10:00 → DL.ENDO 10:00 → EDSTATUS 10:30 → DL.ENDO 13:14
PROVIDERS: ATTEND Surgery
DX: K21.9 Gastro-esophageal reflux disease without esophagitis (principal); K44.9 Diaphragmatic hernia without obstruction or gangrene; K52.9 Noninfective gastroenteritis and colitis, unspecified; E11.9 Type 2 diabetes mellitus without complications
CPT/HCPCS: 43235; A9270; J2250; J7042; 43239